=== PATIENT | male | born 2000 | race Caucasian/White ===

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

== ENCOUNTER 2022-03-16 11:12 | Outpatient (CLI) | payer OTHER ==
[2022-03-16 12:47] LABS: Bilirubin Neg (Negative); Blood, Urine 250 (Negative); Clarity Slightly Cloudy (Clear); Glucose, Urine (Dipstick) Normal (Negative); Ketone, Urine Negative (Negative); Leukocyte Negative (Negative); Nitrite Negative (Negative); Protein, Urine (Dipstick) 15 mg/dl (Neg-Trace); pH, Urine 6.5 (5.0-9.0)
[2022-03-16 13:46] LABS: RBC/HPF Greater than 50 HPF (0-3)
[2022-03-16 13:47] LABS: Bacteria/HPF Rare-Few HPF (None Seen); WBC/HPF 0-3 HPF (0-3)
[2022-03-16 21:14] LABS: SARS-CoV-2 PCR by NAA Not Detected (NotDetected)
== END 2022-03-16 11:13 | disposition home or self-care (01) ==
LOC: LABBT 11:12
PROVIDERS: ATTEND Urology
DX: Z01.812 Encounter for preprocedural laboratory examination (principal); N20.0 Calculus of kidney; Z20.822 Contact with and (suspected) exposure to COVID-19
CPT/HCPCS: 81001; 87086; U0003; U0005

== ENCOUNTER 2022-03-19 06:02 | Day surgery (SDC) | payer OTHER ==
[2022-03-17 11:56] VITALS: BMI 35.2
[2022-03-19] MEDS ORDERED: fentaNYL Citrate/PF 100 MCG/2 ML SYRINGE ONE (08:23)
[2022-03-19] MEDS ORDERED: Levofloxacin 500 mg/D5W 100 ml Premix Bag ONE (08:31)
[2022-03-19] MEDS ORDERED: Dexamethasone 20 MG/5 ML VIAL ONE (08:45)
[2022-03-19] MEDS ORDERED: Ondansetron PF 4 MG/2 ML Vial ONE (08:45)
[2022-03-19] MEDS ORDERED: PROPOFOL 200 MG/20 ML VIAL ONE (08:45)
[2022-03-19] MEDS ORDERED: Lidocaine 1% PF 5 ML VIAL ONE (08:45)
[2022-03-19] MEDS ORDERED: Ketorolac Tromethamine 30 MG/ML VIAL ONE (09:28)
== END 2022-03-19 10:48 | disposition home or self-care (01) ==
LOC: SDC 06:02
PROVIDERS: ATTEND Urology
PROC: 0TF3XZZ Fragmentation in Right Kidney Pelvis, External Approach (ICD-10-PCS; principal; 2022-03-19)
DX: N20.0 Calculus of kidney (principal); Z87.891 Personal history of nicotine dependence
CPT/HCPCS: J1100; J1885; J1956; J2405; J2704